=== PATIENT | female | born 2000 | race African-American/Black ===

== ENCOUNTER 2024-05-13 12:54 | Emergency (ER) | payer MEDICAID, OTHER ==
[~2024-05-13] VITALS: Ht 167.6 cm; Wt 80.0 kg
[2024-05-13 12:56] VITALS: O2SAT 99
[2024-05-13 17:30] VITALS: BP 125/84; PULSE 81; RESP 20; O2SAT 99
== END 2024-05-13 19:35 | disposition home or self-care (01) ==
LOC: ER 13:18
DX: S00.01XA Abrasion of scalp, initial encounter (principal); Z48.00 Encounter for change or removal of nonsurgical wound dressing; X58.XXXA Exposure to other specified factors, initial encounter; Y93.89 Activity, other specified; Y92.89 Other specified places as the place of occurrence of the external cause; Y99.8 Other external cause status
CPT/HCPCS: 99283; Z7610